=== PATIENT | female | born 1935 | race Caucasian/White ===

== ENCOUNTER → 2017-02-05 | Outpatient (CLI) | payer MEDICARE, BC ==
--- NOTE | 2017-02-05 16:33 | BD ---
EXAMINATION TYPE: MG DEXA axial skeleton. DATE OF EXAM: 02/05/2017 COMPARISON: NONE CLINICAL HISTORY: 80-year-old female postmenopausal screening, asymptomatic Height: 5 FT Weight: 126 FRAX RISK QUESTIONS: Alcohol (3 or more units per day): NO Family History (Parent hip fracture): NO Glucocorticoids (More than 3mos): NO (Ex: prednisone, prednisolone, methylprednisolone, dexamethasone, and hydrocortisone). History of Fracture in Adulthood: YES Secondary Osteoporosis: 1. Type 1 Diabetes: NO 2. Hyperthyroidism: NO 3. Menopause before 45: NO 4. Malnutrition: NO 5. Chronic liver disease: NO Rheumatoid Arthritis: NO Current Tobacco Use: NO RISK FACTORS HISTORY OF: History of Wrist Fracture: LT WRIST When: AGE 16 Active: YES Postmenopausal woman: AGE 48 APPROXIMATELY MEDICATIONS: Additional Medications: NONE Additional History: EXAM MEASUREMENTS: Bone mineral densitometry was performed using the [employer] System. Bone mineral density as measured about the Lumbar spine is: ----- L1-L4(G/cm2): 1.083 T Score Values are as follows: ----- L2: -1.5 ----- L3: -1.0 ----- L4: -0.3 ----- L1-L4: -0.8 Bone mineral density has: Decreased -2.4% since study of: 2009 Bone mineral density about the R hip (g/cm2): 0.775 Bone mineral density about the L hip (g/cm2): 0.763 T Score values are as follows: -----R Neck: -1.9 -----L Neck: -2.0 -----R Total: -1.7 -----L Total: -1.4 Bone mineral density has: Decreased -2.9% since study of: 2009 IMPRESSION: Osteopenia (T Score between -2.5 and -1 as noted by T score values There is slightly increased risk of fracture and the patient may be considered for treatment. Re-Scre en 2-5 years. NOTE: T-SCORE=SD OF THE YOUNG ADULT MEAN.
== END | disposition home or self-care (01) ==
LOC: RADBDWWP 14:33
PROVIDERS: ATTEND Family Medicine
DX: M85.88 Other specified disorders of bone density and structure, other site (principal); Z78.0 Asymptomatic menopausal state
CPT/HCPCS: 77080

== ENCOUNTER → 2017-09-15 | Outpatient (CLI) | payer MEDICARE, BC | END | disposition home or self-care (01) | LOC: LABWHC1 15:26 | PROVIDERS: ATTEND Nurse Practitioner | DX: R53.83 Other fatigue (principal) ==

== ENCOUNTER 2022-02-19 16:16 | Observation (INO) | payer MEDICARE, BC ==
--- NOTE | 2022-02-19 17:47 | XR ---
EXAMINATION TYPE: XR ribs LT w pa chest xray DATE OF EXAM: 02/19/2022 COMPARISON: NONE HISTORY: Rib pain TECHNIQUE: 5 views FINDINGS: Heart is normal. Lungs are clear of consolidation. There are no hilar masses. There is slig ht blunting left costophrenic angle. No pneumothorax. There is displaced fracture of the lateral left third fourth fifth and sixth ribs. There is nondispla keren fracture also of the seventh and eighth ribs. The left shoulder appears intact. IMPRESSION: Numerous left-sided rib fractures with displacement. Mild pleural reaction at the left suki ng base. No pneumothorax. Normal heart.
--- NOTE | 2022-02-19 19:57 | ED ---
Fall HPI - General Chief Complaint: Fall Stated Complaint: fall Time Seen by Provider: 02/19/22 18:57 Source: patient Mode of arrival: wheelchair - History of Present Illness Initial Comments: 86-year-old female brought in for evaluation for left chest pain and rib pain after a fall at home. She denies exactly sure how she fell either getting into or out of a tub he does not really recall the incident she denies any head neck pain no back pain just left chest wall pain. The loss of function to her upper or lower extremities no recent fevers chills nausea vomiting sweats no palpitations reported. She does have chronic neck pain but nothing new to report MD Complaint: fall - Related Data Home Medications Medication Instructions Recorded Confirmed No Known Home Medications 04/13/14 02/19/22 Allergies Allergy/AdvReac Type Severity Reaction Status Date / Time No Known Allergies Allergy Verified 02/19/22 21:32 Review of Systems ROS Statement: Those systems with pertinent positive or pertinent negative responses have been documented in the HPI. ROS Other: All systems not noted in ROS Statement are negative. Past Medical History Past Medical History: Eye Disorder, Musculoskeletal Disorder Additional Past Medical History / Comment(s): cataracts, headaches, weariness, stiff neck, broken arm at 16 years old. History of Any Multi-Drug Resistant Organisms: None Reported Additional Past Surgical History / Comment(s): cataract surgery Past Psychological History: No Psychological Hx Reported Past Alcohol Use History: None Reported Past Drug Use History: None Reported General Exam - General Exam Comments Initial Comments: This is a well-developed well-nourished awake alert oriented 2 female with a Ebony Coma Scale of 15 Limitations: no limitations General appearance: alert, in no apparent distress Head exam: Present: atraumatic, normocephalic, normal inspection Eye exam: Present: normal appearance, PERRL, EOMI. Absent: scleral icterus, conjunctival injection, periorbital swelling ENT exam: Present: normal exam, mucous membranes moist Neck exam: Present: normal inspection, full ROM, other (No stridor JVD or bruits). Absent: tenderness, meningismus, lymphadenopathy Respiratory exam: Present: chest wall tenderness (Superficial on the left lateral chest wall clinically no definitive step-off), decreased breath sounds (Decreased breath sounds bilaterally). Absent: respiratory distress, wheezes, rales, rhonchi, stridor Cardiovascular Exam: Present: regular rate, normal rhythm, normal heart sounds. Absent: systolic murmur, diastolic murmur, rubs, gallop, clicks GI/Abdominal exam: Present: soft, normal bowel sounds. Absent: distended, tenderness, guarding, rebound, rigid Extremities exam: Present: normal inspection, full ROM, normal capillary refill. Absent: tenderness, pedal edema, joint swelling, calf tenderness Back exam: Present: normal inspection Neurological exam: Present: alert, oriented X3, CN II-XII intact Psychiatric exam: Present: normal affect, normal mood Skin exam: Present: warm, dry, intact, normal color. Absent: rash Course Vital Signs 02/19/22 02/19/22 16:21 19:51 Temperature 98 F Pulse Rate 70 82 Respiratory 18 18 Rate Blood Pressure 148/73 139/57 O2 Sat by Pulse 98 96 Oximetry Medical Decision Making - Medical Decision Making I did discuss findings with patient family members. Also with Dr. Ramachandran. Visual be admitted for inpatient evaluation of multiple rib fractures. Due to the patient's questionable cause of the fall admission was delayed until lab work and CAT scan were performed. - Lab Data Result diagrams: 02/19/22 20:46 02/19/22 20:46 Lab Results 02/19/22 02/19/22 02/19/22 Range/Units 20:46 20:46 20:46 WBC 9.8 (3.8-10.6) k/uL RBC 4.60 (3.80-5.40) m/uL Hgb 13.9 (11.4-16.0) gm/dL Hct 40.9 (34.0-46.0) % MCV 89.1 (80.0-100.0) fL MCH 30.3 (25.0-35.0) pg MCHC 34.0 (31.0-37.0) g/dL RDW 13.2 (11.5-15.5) % Plt Count 195 (150-450) k/uL MPV 8.1 Neutrophils % 70 % Lymphocytes % 23 % Monocytes % 5 % Eosinophils % 0 % Basophils % 0 % Neutrophils # 6.8 (1.3-7.7) k/uL Lymphocytes # 2.2 (1.0-4.8) k/uL Monocytes # 0.5 (0-1.0) k/uL Eosinophils # 0.0 (0-0.7) k/uL Basophils # 0.0 (0-0.2) k/uL Sodium 139 (137-145) mmol/L Potassium 4.0 (3.5-5.1) mmol/L Chloride 104 (98-107) mmol/L Carbon Dioxide 23 (22-30) mmol/L Anion Gap 12 mmol/L BUN 25 H (7-17) mg/dL Creatinine 0.85 (0.52-1.04) mg/dL Est GFR (CKD-EPI)AfAm 71 (>60 ml/min/1.73 sqM) Est GFR (CKD-EPI)NonAf 62 (>60 ml/min/1.73 sqM) Glucose 156 H (74-99) mg/dL Calcium 9.5 (8.4-10.2) mg/dL Magnesium 2.3 (1.6-2.3) mg/dL Total Bilirubin 0.7 (0.2-1.3) mg/dL AST 29 (14-36) U/L ALT 24 (4-34) U/L Alkaline Phosphatase 58 (38-126) U/L Creatine Kinase 115 (30-135) U/L Troponin I <0.012 (0.000-0.034) ng/mL Total Protein 6.8 (6.3-8.2) g/dL Albumin 4.3 (3.5-5.0) g/dL - EKG Data -: EKG Interpreted by Tx EKG shows normal: sinus rhythm, axis, intervals, QRS complexes, ST-T waves Rate: normal EKG Comments: Normal sinus rhythm a 73. We'll 165 QRS duration 70 QT/QTC 384/[address]- T wave changes - Radiology Data Radiology results: report reviewed (Imaging reviewed as well as reports CT negative for acute processes chest x-ray does show evidence of multiple rib fractures on the left before 5 and 6 are displaced 78 a nondisplaced fractures. No evidence of pneumothorax please see complete report), image reviewed Disposition Clinical Impression: Fall, Multiple fractures of rib involving four or more ribs Disposition: ADMITTED IP TO THIS [facility] Condition: Stable Referrals: Janiya Harper MD [Primary Care Provider] - 1-2 days Decision Date: 02/19/22 Decision Time: 21:40
[2022-02-19 21:04] LABS: Albumin 4.3 g/dL (3.5-5.0); Calcium 9.5 mg/dL (8.4-10.2); Magnesium 2.3 mg/dL (1.6-2.3); Total Bilirubin 0.7 mg/dL (0.2-1.3); Total Protein 6.8 g/dL (6.3-8.2)
--- NOTE | 2022-02-19 21:05 | CT ---
EXAMINATION TYPE: CT brain wo con DATE OF EXAM: 02/19/2022 COMPARISON: None HISTORY: fall CT DLP: 1044.4 mGycm Automated exposure control for dose reduction was used. Images of the brain obtained with no contrast. There is diffuse cerebral moderate cortical atrophy. There is no mass effect or midline shift. No sig n of intracranial hemorrhage. The calvarium is intact. There is normal aeration of the mastoid sinuse s. The sella turcica appears normal. There is extra-axial dense calcification along the left temporal bone that could be exostosis or calcified meningioma. This measures 2 x 1 cm. IMPRESSION: Cerebral atrophy. No acute intracranial abnormality.
[2022-02-19 21:21] LABS: Basophils % (A) 0 %; Eosinophils % (A) 0 %; HCT 40.9 % (34.0-46.0); HGB 13.9 gm/dL (11.4-16.0); Lymphocytes # (A) 2.2 k/uL (1.0-4.8); Lymphocytes % (A) 23 %; MCH 30.3 pg (25.0-35.0); MCV 89.1 fL (80.0-100.0); Mean Platelet Volume 8.1; Monocytes # (A) 0.5 k/uL (0-1.0); Monocytes % (A) 5 %; Neutrophils # (A) 6.8 k/uL (1.3-7.7); Neutrophils % (A) 70 %; Platelet Count 195 k/uL (150-450); RDW 13.2 % (11.5-15.5); WBC 9.8 k/uL (3.8-10.6)
[2022-02-19] MEDS ORDERED: HYDROmorphone 0.5 MG/0.5 ML SYRINGE IVP PRN (21:57)
[2022-02-19] MEDS ORDERED: ONDANSETRON 4 MG/2 ML VIAL IVP PRN (21:57)
[2022-02-19] MEDS ORDERED: NALOXONE 0.4 MG/ML 1 ML VIAL IV PRN (21:57)
[2022-02-19] MEDS ORDERED: SODIUM CHLORIDE 0.9% 1,000 ML IV SCH (22:00)
[2022-02-19] MEDS: ACETAMINOPHEN TAB 325 MG TAB PO PRN (23:05)
[2022-02-20] MEDS: ACETAMINOPHEN TAB 325 MG TAB PO PRN (08:17)
--- NOTE | 2022-02-20 08:23 | P.GSHP ---
History of Present Illness H&P Date: 02/19/22 Notified for s/p fall on ribs. Patient's granddaughter at bedside patient. Patient had fell and broke multiple left-sided ribs. She denies shortness of breath. Recommend pulmonary consultation. Repeat chest x-ray. Pain management for rib pain. Discharge pending consultants. Patient seen at 07 21 02/20/22 Past Medical History Past Medical History: Eye Disorder, Musculoskeletal Disorder Additional Past Medical History / Comment(s): cataracts, headaches, weariness, stiff neck, broken arm at 16 years old. History of Any Multi-Drug Resistant Organisms: None Reported Additional Past Surgical History / Comment(s): cataract surgery Past Psychological History: No Psychological Hx Reported Past Alcohol Use History: None Reported Past Drug Use History: None Reported Medications and Allergies Home Medications Medication Instructions Recorded Confirmed Type No Known Home Medications 04/13/14 02/19/22 History Allergies Allergy/AdvReac Type Severity Reaction Status Date / Time No Known Allergies Allergy Verified 02/19/22 21:32 Surgical - Exam Vital Signs Temp Pulse Resp BP Pulse Ox 98 F 70 18 148/73 98 02/19/22 16:21 02/19/22 16:21 02/19/22 16:21 02/19/22 16:21 02/19/22 16:21 Results - Labs 02/19/22 20:46 02/19/22 20:46 Abnormal Lab Results - Last 24 Hours (Table) 02/19/22 Range/Units 20:46 BUN 25 H (7-17) mg/dL Glucose 156 H (74-99) mg/dL Diabetes panel 02/19/22 Range/Units 20:46 Sodium 139 (137-145) mmol/L Potassium 4.0 (3.5-5.1) mmol/L Chloride 104 (98-107) mmol/L Carbon Dioxide 23 (22-30) mmol/L BUN 25 H (7-17) mg/dL Creatinine 0.85 (0.52-1.04) mg/dL Glucose 156 H (74-99) mg/dL Calcium 9.5 (8.4-10.2) mg/dL AST 29 (14-36) U/L ALT 24 (4-34) U/L Alkaline Phosphatase 58 (38-126) U/L Total Protein 6.8 (6.3-8.2) g/dL Albumin 4.3 (3.5-5.0) g/dL Calcium panel 02/19/22 Range/Units 20:46 Calcium 9.5 (8.4-10.2) mg/dL Albumin 4.3 (3.5-5.0) g/dL Pituitary panel 02/19/22 Range/Units 20:46 Sodium 139 (137-145) mmol/L Potassium 4.0 (3.5-5.1) mmol/L Chloride 104 (98-107) mmol/L Carbon Dioxide 23 (22-30) mmol/L BUN 25 H (7-17) mg/dL Creatinine 0.85 (0.52-1.04) mg/dL Glucose 156 H (74-99) mg/dL Calcium 9.5 (8.4-10.2) mg/dL Adrenal panel 02/19/22 Range/Units 20:46 Sodium 139 (137-145) mmol/L Potassium 4.0 (3.5-5.1) mmol/L Chloride 104 (98-107) mmol/L Carbon Dioxide 23 (22-30) mmol/L BUN 25 H (7-17) mg/dL Creatinine 0.85 (0.52-1.04) mg/dL Glucose 156 H (74-99) mg/dL Calcium 9.5 (8.4-10.2) mg/dL Total Bilirubin 0.7 (0.2-1.3) mg/dL AST 29 (14-36) U/L ALT 24 (4-34) U/L Alkaline Phosphatase 58 (38-126) U/L Total Protein 6.8 (6.3-8.2) g/dL Albumin 4.3 (3.5-5.0) g/dL
[2022-02-20] MEDS ORDERED: PANTOPRAZOLE 40 MG/10 ML VIAL IV SCH (09:00)
--- NOTE | 2022-02-20 09:31 | XR ---
EXAMINATION TYPE: XR chest 2V DATE OF EXAM: 02/20/2022 COMPARISON: 02/19/2022 TECHNIQUE: PA and lateral views submitted. HISTORY: Progress rib fracture FINDINGS: The lungs are clear and there is no pneumothorax, pleural effusion, or focal pneumonia. Multiple le ft-sided displaced rib fractures again seen and have a similar appearance. Heart size is upper limits of normal. Underlying COPD suspected. Arthropathy of the shoulders degenerative hypertrophic changes IMPRESSION: 1. COPD. Correlate for mild chronic interstitial lung disease. 2. Stable multiple displaced left-sided rib fractures with no evidence of pneumothorax.
[2022-02-20 10:57] LABS: Appearance,Urine Clear (Clear); Bacteria,Urine Rare /hpf; Bilirubin,Urine Negative (Negative); Blood,Urine Negative (Negative); Color,Urine Yellow; Glucose,Urine (UA) Negative (Negative); Hyaline Casts,Urine 1 /lpf (0-2); Ketones,Urine 1+ (Negative); Leukocyte Esterase,Urine Trace (Negative); Mucus,Urine Rare /hpf; Nitrite,Urine Negative (Negative); PH, Urine 6.5 (5.0-8.0); Protein,Urine Trace (Negative); RBC,Urine 1 /hpf (0-5); Specific Gravity,Urine 1.021 (1.001-1.035); Squamous Epithelial Cell,Urine <1 /hpf (0-4); Urobilinogen,Urine <2.0 mg/dL (<2.0); WBC,Urine 2 /hpf (0-5)
[2022-02-20 11:00] VITALS: BP 137/73; PULSE 74; RESP 16; TEMP 98.2
--- NOTE | 2022-02-20 11:44 | P.CNPUL ---
History of Present Illness Consult date: 02/20/22 Chief complaint: Left-sided chest pain, fall, rib fractures History of present illness: 86-year-old female patients she fell down while getting out of the bathtub. Sustained trauma to her left chest. Came into the emergency department. CAT sc an of the brain shows cerebral atrophy. Chest x-ray showed displaced fractures of the left-sided rib cage and ribs and lateral views of the ribs showed fracture involving the third fourth fifth and sixth ribs on the left. No other acute abnormalities. No pleural effusion. No pneumothorax. The patient is currently on room air oxygen. Her pain is currently 7 out of 10 in severity and the patient was given Tylenol and she had good pain relief. She is hemodynamically stable. She is a bit confused and she is positive with time and place which is not usual for her. On her blood work, the patient has a white cell count of 9.8 with hemoglobin 15.9 and a platelet count of 195. Electrodes are within normal limits. Troponins are negative. UA is negative. The patient has not required narcotic medication. The patient has been effectively controlled with oral Tylenol. Review of Systems Constitutional: Reports as per HPI Eyes: denies as per HPI, denies blurred vision, denies bulging eye, denies decreased vision, denies diplopia, denies discharge, denies dry eye, denies irritation, denies itching, denies pain, denies photophobia, denies loss of peripheral vision, denies loss of vision, denies tunnel vision/blind spots Ears, nose, mouth and throat: Reports as per HPI Breasts: absent: as per HPI, change in shape, gynecomastia, masses, nipple discharge, pain, skin changes, swelling Cardiovascular: Reports as per HPI, Reports chest pain Respiratory: Reports as per HPI Gastrointestinal: Reports as per HPI Genitourinary: Reports as per HPI Menstruation: Reports as per HPI Musculoskeletal: Reports as per HPI Musculoskeletal: absent: ankle pain, ankle stiffness, ankle swelling, as per HPI, elbow pain, elbow stiffness, elbow swelling, foot pain, foot stiffness, foot swelling, hand pain, hand stiffness, hand swelling, hip pain, hip stiffness, hip swelling, knee pain, knee stiffness, knee swelling, shoulder pain, shoulder stiffness, shoulder swelling, wrist pain, wrist stiffness, wrist swelling Integumentary: Reports as per HPI Neurological: Reports as per HPI Psychiatric: Reports as per HPI Endocrine: Reports as per HPI Hematologic/Lymphatic: Reports as per HPI Allergic/Immunologic: Reports as per HPI Past Medical History Past Medical History: Eye Disorder, Musculoskeletal Disorder Additional Past Medical History / Comment(s): cataracts, headaches, weariness, stiff neck, broken arm at 16 years old. History of Any Multi-Drug Resistant Organisms: None Reported Past Surgical History: Joint Replacement Additional Past Surgical History / Comment(s): cataract surgery Past Psychological History: No Psychological Hx Reported Past Alcohol Use History: None Reported Past Drug Use History: None Reported Medications and Allergies Home Medications Medication Instructions Recorded Confirmed Type No Known Home Medications 04/13/14 02/19/22 History Allergies Allergy/AdvReac Type Severity Reaction Status Date / Time No Known Allergies Allergy Verified 02/19/22 21:32 Physical Exam Vitals: Vital Signs Temp Pulse Pulse Resp BP BP Pulse Ox 02/20/22 07:00 98.2 F 74 16 137/73 96 02/20/22 02:21 98.4 F 73 15 113/62 94 L 02/19/22 23:54 18 02/19/22 22:04 73 18 129/62 95 02/19/22 19:51 82 18 139/57 96 02/19/22 16:21 98 F 70 18 148/73 98 Intake and Output 02/19/22 02/20/22 02/20/22 22:59 06:59 14:59 Intake Total 450 Balance 450 Intake: Intake, IV Titration 400 Amount Sodium Chloride 0.9% 1, 400 000 ml @ 75 mls/hr IV . [id number] [facility] Rx#:[id number] Oral 50 Other: # Voids 1 # Bowel Movements 0 Weight 45.359 kg 45.359 kg The patient appeared well nourished and normally developed. Vital signs as documented. Head exam is unremarkable. No scleral icterus or corneal arcus noted. Neck is without jugular venous distension, thyromegaly, or carotid bruits. Carotid upstrokes are brisk bilaterally. Lungs are clear to auscultation and percussion. Cardiac exam reveals the PMI to be normally sized and situated. Rhythm is regular. First and second heart sounds normal. No murmurs, rubs or gallops. Abdominal exam reveals normal bowel sounds, no masses, no organomegaly and no aortic enlargement. Extremities are nonedematous and both femoral and pedal pulses are normal.Examination of the skin revealed no evidence of significant rashes, suspicious appearing nevi or other concerning lesions.Neurologically, the patient is awake and alert and the patient does not have any focal neurological deficit. Cranial nerves are essentially intact. Results - Laboratory Findings CBC and BMP: 02/19/22 20:46 02/19/22 20:46 Abnormal lab findings: Abnormal Labs 02/19/22 10 20:46 10:38 BUN 25 H Glucose 156 H Urine Protein Trace H Urine Ketones 1+ H Ur Leukocyte Esterase Trace H Urine Bacteria Rare H Urine Mucus Rare H Assessment and Plan Plan: Traumatic left-sided rib fractures, nondisplaced fifth and sixth ribs, Left-sided chest pain secondary to above Mild dementia Cataract Plan There is no evidence of any serious Ary complications. The patient is oxygenating normally and the patient is hemodynamically stable. No evidence of any pneumothorax. No evidence of any pulmonary contusion. No evidence of any hemothorax. The pain is under adequate control with Tylenol. No altered ment ation. The patient slept and felt rather than having a cardiac vascular events. Based on all this, and based on the fact that the patient has a good social support system, she can be discharged home on Tylenol and I would also suggest giving this patient 10 tablets of Lock[place] 5/325 to be taken on this basis should her pain get worse. She should be provided incentive spirometer. I would like to see her back in the office in one week for repeat chest x-ray. CAT scan of the brain has been negative. The fall occurred yesterday. The patient started ambulating.
--- NOTE | 2022-02-20 13:47 | P.DS ---
Providers Date of admission: 02/19/22 22:00 Expected date of discharge: 02/20/22 Attending physician: Heavenly Albrecht Consults: 02/20/22 07:30 Consult Physician Routine Consulting Provider: Swetha Narvaez Consult Reason/Comments: fall/rib fx Do you want consulting provider notified?: Yes, Notify in am Primary care physician: Janiya Harper Hospital Course: Discharge diagnosis 1. Fall with trauma to ribs 2. Left displaced rib fractures 3, 4, 5 and 6. Nondisplaced fractures of ribs 7 and 8 3. Left-sided chest pain due to rib fractures Hospital course This is a 86-year-old female who presented to the hospital after a fall at home. She was trying to get out of the tub. She hit the left side of her chest. She was found to have left-sided rib fractures on imaging. X-ray of the ribs and chest shows numerous left-sided rib fractures with displacement. Mild pleural reaction at the lung base. No pneumothorax. Normal. Brain CT no acute intracranial abnormality. Cerebral atrophy noted. Repeat chest x-ray shows COPD and stable multiple displaced left-sided rib fractures with no evidence of pneumothorax. Patient is tolerating diet. She is on room air. She denies shortness of breath. She reports her pain is controlled with Tylenol. She has been seen by pulmonary service and cleared for discharge. Patient has been able to ambulate short distance. She is tolerated diet. She's afebrile. She is stable for discharge. Physician Melter Supervisor note has been reviewed by physician. Signing provider agrees with the documented findings, assessment, and plan of care. Patient Condition at Discharge: Stable Plan - Discharge Summary Discharge Rx Participant: No New Discharge Prescriptions: New Acetaminophen Tab [Tylenol] 1,000 mg PO Q6HR PRN #30 tablet PRN Reason: Pain Discharge Medication List Acetaminophen Tab [Tylenol] 1,000 mg PO Q6HR PRN #30 tablet 02/20/22 [Rx] Follow up Appointment(s)/Referral(s): Janiya Harper MD [Primary Care Provider] - 1-2 days Swetha Narvaez MD [STAFF PHYSICIAN] - 1 Week Activity/Diet/Wound Care/Special Instructions: Activity as tolerated Continue to use incentive spirometer Recommend using Tylenol [id number] for the next 24-48 hours Discharge Disposition: HOME SELF-CARE
== END 2022-02-20 14:10 | disposition home or self-care (01) ==
LOC: SUPCPDRO 16:16 → EC 16:16 → 6NMEDSUR 22:00
PROVIDERS: ADMIT Surgery Plastic and Reconstructive Surgery; ATTEND Surgery Plastic and Reconstructive Surgery
DX: S22.42XA Multiple fractures of ribs, left side, initial encounter for closed fracture (principal); M54.2 Cervicalgia; G89.29 Other chronic pain; J44.9 Chronic obstructive pulmonary disease, unspecified; H26.9 Unspecified cataract; F03.90 Unspecified dementia, unspecified severity, without behavioral disturbance, psychotic disturbance, mood disturbance, and anxiety; Z98.49 Cataract extraction status, unspecified eye; Z96.60 Presence of unspecified orthopedic joint implant; W18.2XXA Fall in (into) shower or empty bathtub, initial encounter; Y92.002 Bathroom of unspecified non-institutional (private) residence as the place of occurrence of the external cause
CPT/HCPCS: 96374; 99285; 36415; 93005; 80053; 82550; 83735; 84484; 85025; 81001; 71101; 71046; 70450; G0378 ×2; C9113